=== PATIENT | female | born 1990 | race Caucasian/White ===

== ENCOUNTER 2018-02-19 06:28 | Inpatient (IN) | payer BC ==
[2018-02-18 09:08] LABS: BILIRUBIN,URINE NEGATIVE (NEGATIVE); BLOOD, URINE NEGATIVE (NEGATIVE); COLOR,URINE YELLOW (YELLOW); GLUCOSE,URINE NEGATIVE (NEGATIVE); KETONES,URINE NEGATIVE (NEGATIVE); LEUKOCYTE ESTERASE ,URINE NEGATIVE (NEGATIVE); NITRITE, URINE NEGATIVE (NEGATIVE); PROTEIN URINE NEGATIVE (NEGATIVE); UROBILINOGEN,URINE 0.2 (0.2-1.0)
[2018-02-18 09:10] LABS: BASOPHILS % (AUTO) 0.4 % (0.0-2.0); EOSINOPHILS # (AUTO) 0.1 K/uL (0.0-0.4); EOSINOPHILS % (AUTO) 1.3 % (0.0-4.0); HEMATOCRIT 38.7 % (36-48); HEMOGLOBIN 12.8 g/dL (12.0-16.0); LYMPHOCYTES % (AUTO) 21.8 % (20.5-51.5); MEAN CORPUSCULAR HEMOGLOBIN 27 pg (27-31); MEAN CORPUSCULAR HGB CONC 33 % (32-36); MEAN CORPUSCULAR VOLUME 80 fL (79.0-98.0); MONOCYTES # (AUTO) 0.5 K/uL (0.0-1.0); MONOCYTES % (AUTO) 5.5 % (1.7-9.3); NEUTROPHILS # (AUTO) 6.6 K/uL (1.8-7.7); PLATELET COUNT (AUTO) 230 K/uL (130-430); RED BLOOD CELL COUNT(AUTO) 4.84 MIL/uL (4.2-6.2); RED CELL DISTRIBUTION WIDTH 13.6 % (9.0-15.0); WHITE BLOOD COUNT (AUTO) 9.2 K/uL (4.8-10.8)
[2018-02-18 09:16] LABS: CLARITY/URINE SLIGHTLY HAZY (CLEAR)
[2018-02-18 09:22] LABS: CALCIUM 9.2 mg/dL (8.4-11.0); CREATININE 0.67 mg/dL (0.55-1.30); POTASSIUM 3.9 mmol/L (3.5-5.1)
[2018-02-18 09:28] LABS: ALBUMIN 3.9 g/dL (3.4-4.8); TOTAL BILIRUBIN 0.4 mg/dL (0.0-1.0)
[~2018-02-19] VITALS: Ht 157.5 cm; Wt 80.3 kg
[2018-02-19] MEDS ORDERED: SUCCINYLCHOLINE CHLORIDE 20 MG/ML(QUELICIN) IVP ONE (09:10)
[2018-02-19] MEDS ORDERED: CEFAZOLIN 1 GM IVPB PREMIX 50 ML IV ONE (09:10)
[2018-02-19] MEDS ORDERED: ONDANSETRON HCL 4 MG/2 ML VIAL IVP ONE (09:10)
[2018-02-19] MEDS ORDERED: MORPHINE SULFATE 10MG/10ML PF AMP EP ONE (09:10)
[2018-02-19] MEDS ORDERED: fentaNYL CITRATE 250 MCG/5 ML AMP IV ONE (09:10)
[2018-02-19] MEDS ORDERED: SEVOFLURANE 15 MIN GAS INH ONE (09:10)
[2018-02-19] MEDS ORDERED: LR 1,000 ML IV.SOLN IV ONE (09:10)
[2018-02-19] MEDS ORDERED: MIDAZOLAM HCL 5 MG/5 ML VIAL IVP ONE (09:10)
[2018-02-19] MEDS ORDERED: PROPOFOL 200MG/ 20ML VIAL (DIPRIVAN) IV ONE (09:10)
[2018-02-19] MEDS ORDERED: NS 1000 ML IV.SOLN IV ONE (09:10)
[2018-02-19] MEDS ORDERED: ROCURONIUM BROMIDE 10 MG/ML (ZEMURON) IV ONE (09:10)
[2018-02-19] MEDS ORDERED: SUGAMMADEX SODIUM 200 MG/2 ML VIAL IV ONE (09:10)
[2018-02-19] MEDS ORDERED: LR 1,000 ML IV SCH (10:11)
[2018-02-19] MEDS ORDERED: METOCLOPRAMIDE HCL 10 MG/2 ML VIAL IVP PRN (10:15)
[2018-02-19] MEDS ORDERED: MORPHINE 4 MG/ML INJ. SYRINGE IVP PRN ×2 (10:15)
[2018-02-19] MEDS: LR 1,000 ML IV SCH ×2 (10:43→20:26)
[2018-02-19] MEDS ORDERED: SENNOSIDES/DOCUSATE SODIUM 1 TAB TABLET(SENOKOT-S) PO PRN (10:45)
[2018-02-19] MEDS ORDERED: ONDANSETRON HCL 4 MG/2 ML VIAL IVP PRN (10:45)
[2018-02-19] MEDS ORDERED: DOCUSATE SODIUM 100 MG CAPSULE PO PRN (10:45)
[2018-02-19] MEDS ORDERED: TEMAZEPAM 15 MG CAPSULE PO PRN (10:45)
[2018-02-19] MEDS ORDERED: BISACODYL 10 MG/SUPPOSITORY RC PRN (10:45)
[2018-02-19] MEDS: MORPHINE 4 MG/ML INJ. SYRINGE IVP PRN ×3 (11:09→11:33)
[2018-02-19] MEDS ORDERED: MORPHINE 4 MG/ML INJ. SYRINGE ONE ×2 (11:14→11:33)
[2018-02-19 12:00] VITALS: BP_SYST 121
--- NOTE | 2018-02-19 12:00 | NUR ---
Patient received a/ox4, in pain, assessment complete, surgical dressing to pelvic area clean, dry and intact, Jaime catheter in place draining to gravity, IV line is patent and infusing well, no s/s of infiltration, educated on plan of care and call light system and to call for any assistance, she verbalized understanding, family at bedside, bed in lowest position, two side rails up, call light within reach, fall precautions in place.
[2018-02-19] MEDS: KETOROLAC TROMETHAMINE 30 MG VIAL IVP SCH ×2 (12:07→18:38)
--- NOTE | 2018-02-19 12:07 | NUR ---
Pain medication patient resting in bed, awake, family at bedside, educated her on scheduled pain medication and potential side effects and pain management, she verbalized understanding, IV line is patent and infusing well, continuing to monitor, bed in lowest position, two side rails up, call light within reach, fall and aspiration precautions in place, provided the patient with ice water, ordered lunch tray from kitchen.
[2018-02-19 12:09] VITALS: BP_SYST 121
[2018-02-19] MEDS ORDERED: HYDROmorphone 2 MG/ML VIAL IVP PRN (13:30)
[2018-02-19 14:00] VITALS: BP_SYST 121
[2018-02-19] MEDS: SIMETHICONE 80 MG TAB.CHEW PO PRN ×2 (14:26→20:36)
[2018-02-19] MEDS: OXYCODONE/ACETAMINOPHEN 5-325 TABLET PO PRN (14:27)
[2018-02-19] MEDS ORDERED: OXYCODONE/ACETAMINOPHEN 5-325 TABLET ONE (14:30)
[2018-02-19] MEDS ORDERED: OXYCODONE/ACETAMINOPHEN 5-325 TABLET PO PRN (14:45)
--- NOTE | 2018-02-19 14:52 | NUR ---
Pain medication/Nausea patient resting in bed, awake, family at bedside, educated her on pain medication and potential side effects, she verbalized understanding, she tolerated well, IV line is patent and infusing well,emesis basin provided, continuing to monitor, bed in lowest position, two side rails up, call light within reach, fall and aspiration precautions in place.
[2018-02-19 16:00] VITALS: BP_SYST 102
--- NOTE | 2018-02-19 16:43 | NUR ---
RN rounds patient resting in bed, eyes closed, breathing is even and unlabored, no signs of distress, easy to wake, vital signs stable, patient states mild but tolerable pain level at this time, bed in lowest position, two side rails up, call light within reach, fall and aspiration precautions in place, continuing to monitor.
--- NOTE | 2018-02-19 17:39 | NUR ---
Refused medication patient resting in bed, offered scheduled pain medication, patient states her pain is about a 3 right now, but she doesn't want to take the medication right now, re-educated her on pain management and to not let pain level get too high before accepting medication, she verbalized understanding for now, called kitchen for dinner tray, not yet delivered, will follow up as needed, bed in lowest position, two side rails up, call light within reach, fall and aspiration precautions in place.
--- NOTE | 2018-02-19 18:27 | NUR ---
Second call to kitchen regarding dinner tray, following up as needed.
--- NOTE | 2018-02-19 18:41 | NUR ---
Closing note/pain medication patient resting in bed, provided her with sandwiches, juice and jello, her family also brought food from home for her, aspiration precautions in place, re-educated the patient on pain medication uses and potential side effects, and on pain management, she verbalized understanding, IV line is patent and infusing well, all needs met, will endorse report to [facility] shift nurse, bed in lowest position, two side rails up, call light within reach, fall and aspiration precautions in place.
--- NOTE | 2018-02-19 19:14 | NUR ---
initial notes: pt is at bed. awake, alert and oriented. with slight pain on her abdomen. stable. ivf ongoing to left hand. reilly draining to gravity. and with bilateral scd. family at bedside. will check vs. bed is low side rails i s up. call light in reach.
[2018-02-19 20:09] VITALS: BP_SYST 116
--- NOTE | 2018-02-19 20:15 | NUR ---
pt is assess. explain to pt for her plan of care. encourage pt to sit at edge of bed. pt refused due to pain. explained the benefits of early mobility to pt. pt verbalized understanding. needs attended. farshad light in reach. will follow-up.
--- NOTE | 2018-02-19 22:00 | NUR ---
notes: sleeping. no sign of pain. no distress. no sob. stable. ivf infusing well. call light in reach. side rails up. will monitor.
[2018-02-20] VITALS: BP_SYST 103
[2018-02-20] MEDS: KETOROLAC TROMETHAMINE 30 MG VIAL IVP SCH ×2 (00:05→06:21)
--- NOTE | 2018-02-20 00:09 | NUR ---
notes: awake, alert. complain of abdominal pain. explain to her schedule pain medication. pt verbalized understanding. needs attended, farshad light in reach, will follow-up.
--- NOTE | 2018-02-20 02:10 | NUR ---
notes: sleeping. no sign of pain. no sob. stable. ivf infusing well. scd on her bilateral legs. bed is inlow position. call light in reach. will follow-up.
[2018-02-20] MEDS: OXYCODONE/ACETAMINOPHEN 5-325 TABLET PO PRN ×2 (02:54→13:48)
--- NOTE | 2018-02-20 04:16 | NUR ---
notes: sleeping, no sign of pain. stable. ivf infusing well. call light in reach. side rails up. at bedside sleeping as well. will continue to monitor.
[2018-02-20] MEDS: LR 1,000 ML IV SCH ×2 (05:16→09:39)
--- NOTE | 2018-02-20 05:50 | NUR ---
notes: pt call for her iv beeping. according to pt. she is able to tolerate p.o. intake. no nausea and vomiting. saline iv site. needs attended. call light in reach. side rails up. will follow-up.
[2018-02-20] MEDS: IBUPROFEN 600 MG TABLET PO SCH ×4 (06:22→23:22)
--- NOTE | 2018-02-20 06:40 | NUR ---
closing: pt is awake, alert. schedule pain medication given. pt tolerate sitting on the edge of bed and standing. lb=398/75, hr-85. [id number]. i.s. done. saline lock to left hand gauge 18 intact. abdominal binder applied. no blinding o seen on surgical site. needs attended the whole shift. will give bedside report to am rn.
[2018-02-20 06:59] LABS: ALBUMIN 3.1 g/dL (3.4-4.8); CALCIUM 8.3 mg/dL (8.4-11.0); CREATININE 0.65 mg/dL (0.55-1.30); POTASSIUM 3.8 mmol/L (3.5-5.1); TOTAL BILIRUBIN 0.6 mg/dL (0.0-1.0)
[2018-02-20] MEDS ORDERED: OXYCODONE/ACETAMINOPHEN 5-325 TABLET PO PRN (07:00)
--- NOTE | 2018-02-20 07:20 | NUR ---
OPENING NOTE PT IN BED AWAKE. DENIES ANY PAIN/ SHORTNESS OF BREATH. CALL LIGHT VISIBLY WITHIN REACH. FAMILY AT BEDSIDE. SAFETY MAINTAINED.
[2018-02-20 07:21] LABS: BASOPHILS % (AUTO) 0.2 % (0.0-2.0); EOSINOPHILS # (AUTO) 0.1 K/uL (0.0-0.4); EOSINOPHILS % (AUTO) 0.5 % (0.0-4.0); HEMOGLOBIN 11.7 g/dL (12.0-16.0); LYMPHOCYTES # (AUTO) 1.8 K/uL (1.0-5.5); MEAN CORPUSCULAR HEMOGLOBIN 26 pg (27-31); MEAN CORPUSCULAR HGB CONC 33 % (32-36); MEAN CORPUSCULAR VOLUME 80 fL (79.0-98.0); MONOCYTES # (AUTO) 0.6 K/uL (0.0-1.0); MONOCYTES % (AUTO) 5.6 % (1.7-9.3); NEUTROPHILS # (AUTO) 8.2 K/uL (1.8-7.7); NEUTROPHILS % (AUTO) 76.7 % (40.0-70.0); PLATELET COUNT (AUTO) 232 K/uL (130-430); RED BLOOD CELL COUNT(AUTO) 4.52 MIL/uL (4.2-6.2); RED CELL DISTRIBUTION WIDTH 13.6 % (9.0-15.0); WHITE BLOOD COUNT (AUTO) 10.7 K/uL (4.8-10.8)
--- NOTE | 2018-02-20 07:40 | NUR ---
MD ROUNDS SPOKE WITH DR. LEEROY TURNER STATED PT IS TO AMBULATE TODAY, HAVE GOOD PAIN MANAGEMENT, AND URINATE. STATED TO CALL HER AT 1900 IF PATIENT MEETS THOSE GOALS FOR DISCHARGE TODAY.
[2018-02-20 08:00] VITALS: BP_SYST 122
--- NOTE | 2018-02-20 08:00 | NUR ---
ROUNDS PATIENT INSTRUCTED TO CALL FOR HELP DURING AMBULATION- PT STATED SHE TRIED TO GET UP ON HER OWN BUT FELT DIZZY AND STAYED IN BED. PT REINSTRUCTED ON INCENTIVE SPIROMETER USE,
--- NOTE | 2018-02-20 08:45 | NUR ---
Nutrition Update Prosper Scale 17 noted. Pt admitted for pelvic and perineal pain. Diet: regular BMI: 32.4 kg/m2 RD to follow per nutrition care standards.
--- NOTE | 2018-02-20 11:03 | NUR ---
med pass motrin, and colace given at this time. safety maintained. will continue to monitor
[2018-02-20 12:00] VITALS: BP_SYST 119
--- NOTE | 2018-02-20 13:51 | NUR ---
pain med pt c/o of abd pain 01/25- she stated she got up to restroom and began having pain. pt given percocet 2 tabs as ordered. safety maintained.
[2018-02-20 16:07] VITALS: BP_SYST 127
[2018-02-20] MEDS: SIMETHICONE 80 MG TAB.CHEW PO PRN (17:53)
--- NOTE | 2018-02-20 17:54 | NUR ---
med pass motrin po given, mylicon po given as well.
--- NOTE | 2018-02-20 18:32 | NUR ---
closing note all needs met through shift. safety maintained. will endorse care to overnight caregiver.
--- NOTE | 2018-02-20 19:15 | NUR ---
REPORT: BEDSIDE REPORT DONE FROM ABDIRASHID BACA.PATIENT IN BED AWAKE ,ALERT ,ORIENTED X4.
[2018-02-20 19:45] VITALS: BP_SYST 119
--- NOTE | 2018-02-20 19:45 | NUR ---
INITIAL NOTES: PATIENT IN BED AWAKE,CONVERSING WITH FAMILIES WHO CAME FOR VISITS.VITAL SIGNS STABLE.POST OP INCISION TO LOWER ABDOMEN WITH DRY AND INTACT DRESSING, WITH ABDOMINAL BINDER SUPPORT. PATIENT MILD OBESE .HAS TOLERABLE POST OP PAIN..SALINE LOCK PATENT. FLUSHES WELL. EDUCATED ON USE OF INCENTIVE SPIROMETER,PAIN CONTROL, NUTRITION, ACTIVITIES WITH GOOD UNDERSTANDING.USES IS UP TO 1700 TO 2 LITERS. CALL LIGHT WITHIN REACH. BED IN LOW POSITION FOR SAFETY. SCD IN PLACE. AMBULATES TO BATHROOM TO VOID WITH STEADY GAIT. REGULAR HEART RATE. WILL MONITOR CLOSELY.
--- NOTE | 2018-02-20 21:30 | NUR ---
ACTIVITIES: GIRLFRIEND HERE. BOTH AMBULATED ON [address]. TOLERATED WELL.
--- NOTE | 2018-02-20 22:25 | NUR ---
RESTING QUITELY WITH EYES CLOSE. NO DISTRESS.
[2018-02-20 23:27] VITALS: BP_SYST 132
--- NOTE | 2018-02-21 00:30 | NUR ---
BELLE. ROUNDS: AWAKENED. AT BEDSIDE. TOLERATED POST OP PAIN.
--- NOTE | 2018-02-21 02:00 | NUR ---
RESTING QUITELY. COMFORTABLE.
--- NOTE | 2018-02-21 04:05 | NUR ---
ROUNDS: PATIENT SLEEPING. NO DISTRESS.
[2018-02-21] MEDS: IBUPROFEN 600 MG TABLET PO SCH ×2 (06:00→11:05)
[2018-02-21] MEDS: OXYCODONE/ACETAMINOPHEN 5-325 TABLET PO PRN (07:00)
--- NOTE | 2018-02-21 07:00 | NUR ---
CLOSING: SLEPT AT LONG INTERVALS. COMPLAIN OF PAIN THIS TIME. REFUSE MOTRIN. PERCOCET 2 TABS PO GIVEN. ALL NEEDS ATTENDED. HOURLY ROUNDS DONE. WILL GIVE GIVE REPORT TO AM RN FOR FURTHER CARE.
--- NOTE | 2018-02-21 07:28 | NUR ---
DR UMAÑA AT BEDSIDE, PT CLEARED FOR DISCHARGE, MD GAVE PT DISCHARGE INSTRUCTIONS AND FOLLOW UP CARE, WILL ENFORCE DISCHARGE INSTRUCTIONS.
--- NOTE | 2018-02-21 07:45 | NUR ---
Initial note Pt laying to side in bed, resting, easy to arouse, no s/s of acute distress or complaint of pain at this time. VSS. at bedside. Per pt, she is aware of discharge today, pt states if she can be discharged around Noon. Will start on discharge paperwork. iv to left hand intact, saline locked, no iv fluids running at this time. abdominal dressing cdi, with pt own abd binder in place. call light within reach, will follow up
[2018-02-21] MEDS: LR 1,000 ML IV SCH ×3 (07:55→10:43)
[2018-02-21 08:08] VITALS: BP_SYST 123
--- NOTE | 2018-02-21 10:00 | NUR ---
ROUNDS PT REQUESTING ICE CHIPS AND ICE PACKS STATES SHE FEELS VERY HOT, MAYBE SHE HAS FEVER. TEMPERATURE ASSESSED, 98.1. NO ELEVATED TEMPERATURE NOTED, WILL CALL TO HAVE AC TEMPERATURE LOWERED.
[2018-02-21 10:38] VITALS: BP_SYST 123
--- NOTE | 2018-02-21 11:05 | NUR ---
SCHEDULED MOTRIN GIVEN/ DISCHARGE INSTRUCTIONS AND FOLLOW UP CARE REVIEWED. PT VERBALIZED UNDERSTANDING
--- NOTE | 2018-02-21 11:40 | NUR ---
D/C Patient Patient given medication reconciliation form and D/C instructions. Exit Care provided. Patient verbalized understanding. MD discussed with patient the results and treatment provided. Ambulatory with steady gait for discharge to home, abdomen gaurded. Left via wheelchair with rn at side. Patient in stable condition, ID band removed. IV catheter removed, intact and dressing applied, no active bleeding. Rx of Percocet given before surgery by DR Whitman office. Patient educated on pain management. All belongings sent with patient.
[2018-02-21 12:00] VITALS: BP_SYST 128
== END 2018-02-21 11:40 | disposition home or self-care (01) | DRG 743 ==
LOC: SMU 06:28 → EDSTATUS 09:00 → SMU 11:59
PROVIDERS: ADMIT Obstetrics & Gynecology; ATTEND Obstetrics & Gynecology
PROC: 0UB90ZZ Excision of Uterus, Open Approach (ICD-10-PCS; principal; 2018-02-19 09:00)
DX: D25.9 Leiomyoma of uterus, unspecified (principal); F15.90 Other stimulant use, unspecified, uncomplicated; E11.9 Type 2 diabetes mellitus without complications; Z83.49 Family history of other endocrine, nutritional and metabolic diseases; Z83.3 Family history of diabetes mellitus; Z72.89 Other problems related to lifestyle
CPT/HCPCS: 36415; 80053; 81003; 84703; 85025; 86886; 86900; 86901; 87081; 88305; 94010; C9399; J0330; J0690; J1885; J2250; J2270; J2274; J2405; J2704; J3010; J7030; J7120